=== PATIENT | female | born 2000 | race Two or more races ===

== ENCOUNTER 2025-06-19 16:40 | Emergency (ER) | payer OTHER ==
[~2025-06-19] VITALS: Ht 165.1 cm; Wt 66.0 kg
[2025-06-19 16:43] VITALS: BP 132/66; PULSE 84; RESP 16; TEMP 97.9; O2SAT 97
== END 2025-06-19 17:02 | disposition left against medical advice (07) ==
LOC: ER 16:40
DX: R68.89 Other general symptoms and signs (principal); Z53.21 Procedure and treatment not carried out due to patient leaving prior to being seen by health care provider; V89.2XXA Person injured in unspecified motor-vehicle accident, traffic, initial encounter; Y93.89 Activity, other specified; Y92.89 Other specified places as the place of occurrence of the external cause; Y99.8 Other external cause status